=== PATIENT | male | born 1985 | race African-American/Black ===

== ENCOUNTER 2023-04-04 15:33 | Emergency (ER) | payer SELFPAY ==
[~2023-04-04] VITALS: Ht 180.3 cm; Wt 102.1 kg
[2023-04-04 16:00] VITALS: BP 127/71; TEMP 98.4; O2SAT 100
== END 2023-04-04 16:53 | disposition home or self-care (01) ==
LOC: ER 15:38
DX: S80.01XA Contusion of right knee, initial encounter (principal); Z60.2 Problems related to living alone; V89.2XXA Person injured in unspecified motor-vehicle accident, traffic, initial encounter; Y93.89 Activity, other specified; Y92.89 Other specified places as the place of occurrence of the external cause; Y99.8 Other external cause status
CPT/HCPCS: 73564-TC